=== PATIENT | female | born 1950 | race Caucasian/White ===

== ENCOUNTER 2018-09-11 13:41 | Emergency (ER) | payer SELFPAY ==
[~2018-09-11] VITALS: Ht 172.7 cm; Wt 117.9 kg
[2018-09-11 13:41] VITALS: BP_SYST 151
[2018-09-11] MEDS ORDERED: fentaNYL CITRATE/PF 100 MCG/2 ML AMP IM ONE (14:15)
[2018-09-11 16:04] VITALS: BP_SYST 151
== END 2018-09-11 16:04 | disposition home or self-care (01) ==
LOC: SED 13:41
DX: M25.561 Pain in right knee (principal); M25.562 Pain in left knee; G89.29 Other chronic pain; Z88.6 Allergy status to analgesic agent
CPT/HCPCS: 96372; 99283; J3010